=== PATIENT | male | born 1945 | race Caucasian/White ===

== ENCOUNTER → 2021-06-06 | Day surgery (SDC) | payer MEDICARE, OTHER ==
[~2021-06-06] VITALS: Ht 188 cm; Wt 124.7 kg
[~2021-06-06] MED LIST: ASPIRIN EC81 MG PO; CERTAGEN1 EACH PO; EFFEXOR XR75 MG PO; FLAX SEED OIL1000 MG PO; FLOMAX0.4 MG PO; GARLIC OIL1000 MG PO; GLUCOSAMINE &1 EAC1 PO; LOVAZA1 GM PO; NORVASC5 MG PO; OS-CAL500 MG PO; POTASSIUM GLUCO90 MG PO; POTASSIUM20 MEQ/11 PO; PRAVACHOL20 MG PO; SINGULAIR10 MG PO; SYMBICORT 16010.2 GM INH; SYMBICORT 80-10.2 GM INH; TOPROL XL 25MG25 MG PO; VITAMIN D1000 UNIT PO; XALATAN2.5 ML OU
== END | disposition home or self-care (01) ==
LOC: FAS 05-16 07:30
DX: Z12.11 Encounter for screening for malignant neoplasm of colon (principal); D12.2 Benign neoplasm of ascending colon; D12.3 Benign neoplasm of transverse colon; D12.0 Benign neoplasm of cecum; D17.5 Benign lipomatous neoplasm of intra-abdominal organs; K57.30 Diverticulosis of large intestine without perforation or abscess without bleeding; I10 Essential (primary) hypertension; F41.9 Anxiety disorder, unspecified; E55.9 Vitamin D deficiency, unspecified; J45.909 Unspecified asthma, uncomplicated; Z79.899 Other long term (current) drug therapy; Z87.891 Personal history of nicotine dependence; Z86.010 Personal history of colon polyps
CPT/HCPCS: 88305; J2250; J2704; J7120